=== PATIENT | male | born 2000 | race Caucasian/White ===

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

== ENCOUNTER 2022-11-12 15:44 | Emergency (ER) | payer OTHER ==
--- NOTE | 2022-11-12 15:52 | ED ---
General Adult HPI - General Source: RN notes reviewed <Ally Flores - Last Filed: 11/12/22 15:52> <Darius Napier - Last Filed: 11/13/22 00:10> - General Stated complaint: nail in L finger Time Seen by Provider: 11/12/22 15:51 - History of Present Illness Initial comments: 22-year-old male with no significant past medical history presents to the emergency department with a chief complaint of penetrating wound. Patient reports his with a nail gun when he shot a nail through his left second digit. (Ally Flores) Patient is a 22-year-old male presenting with chief complaint of nail injury to the left pointer finger. This occurred at work today. Nail entered and exited in the finger. Patient moves a nail on his own and at this time there is no active bleeding. He received his last tetanus shot in 2019. He has some swelling. Full range of motion and sensation are intact. (Darius Napier) - Related Data Previous Rx's Medication Instructions Recorded Penicillin V Potassium [Pen Vee K] 500 mg PO BID 10 Days #20 tablet 08/27/19 methylPREDNISolone [Medrol Dose 4 mg PO DIRECTED #1 pack 08/27/19 Pack] Cephalexin [Keflex] 500 mg PO Q6HR 7 Days #28 cap 11/12/22 Allergies Allergy/AdvReac Type Severity Reaction Status Date / Time No Known Allergies Allergy Verified 11/12/22 16:37 Review of Systems ROS Other: All systems not noted in ROS Statement are negative. <Ally Flores - Last Filed: 11/12/22 15:52> ROS Other: All systems not noted in ROS Statement are negative. <Darius Napier - Last Filed: 11/13/22 00:10> ROS Statement: Those systems with pertinent positive or pertinent negative responses have been documented in the HPI. Past Medical History Past Medical History: No Reported History History of Any Multi-Drug Resistant Organisms: MRSA Past Surgical History: Orthopedic Surgery Past Psychological History: No Psychological Hx Reported Past Alcohol Use History: None Reported Past Drug Use History: None Reported <Ally Flores - Last Filed: 11/12/22 15:52> General Exam <Ally Flores - Last Filed: 11/12/22 15:52> Limitations: no limitations General appearance: alert, in no apparent distress Head exam: Present: atraumatic, normocephalic, normal inspection Eye exam: Present: normal appearance, EOMI. Absent: scleral icterus, periorbital swelling Neck exam: Present: normal inspection, full ROM Left Hand Wrist exam: Present: tenderness, swelling, abrasion (2 puncture wounds are noted where the nail entered and exited on the left pointer finger) Neurological exam: Present: alert, oriented X3, CN II-XII intact Psychiatric exam: Present: normal affect, normal mood Skin exam: Present: warm, dry, intact, normal color. Absent: rash <Darius Napier - Last Filed: 11/13/22 00:10> - General Exam Comments Initial Comments: Visual Physical Exam Vital signs reviewed General: Well-appearing, nontoxic, no acute distress. Head: Normocephalic, atraumatic Eyes: PERRLA, EOMI ENT: Airway patent Chest: Nonlabored breathing Skin: No visual rash, normal skin tone Neuro: Alert and oriented 3 Musculoskeletal: No gross abnormalities (Ally Flores) Course Vital Signs 11/12/22 11/12/22 16:31 19:31 Temperature 98.6 F 98.1 F Pulse Rate 83 78 Respiratory 18 16 Rate Blood Pressure 151/95 146/91 O2 Sat by Pulse 98 98 Oximetry Medical Decision Making <Darius Napier - Last Filed: 11/13/22 00:10> - Medical Decision Making Was pt. sent in by a medical professional or institution (, [facility], MANIPULATOR OPERATOR, urgent care, hospital, or shelter...) When possible be specific @ -No Did you speak to anyone other than the patient for history (EMS, parent, family, police, friend...)? What history was obtained from this source @ -No Did you review nursing and triage notes (agree or disagree)? Why? @ -I reviewed and agree with nursing and triage notes Were old charts reviewed (outside hosp., previous admission, EMS record, old EKG, old radiological studies, urgent care reports/EKG's, shelter records)? Report findings @ -No old charts were reviewed Differential Diagnosis (chest pain, altered mental status, abdominal pain women, abdominal pain men, vaginal bleeding, weakness, fever, dyspnea, syncope, headache, dizziness, GI bleed, back pain, seizure, CVA, palpatations, mental health, musculoskeletal)? @ -Differential Musculoskeletal Muscular strain, contusion, ligament sprain, fracture, arthritis, septic arthritis, bursitis, cellulitis, muscle spasm, nerve compression, DVT, arterial occlusion, herpes zoster, electrolyte abnormality, tumor.... This is not meant to be in all inclusive list EKG interpreted by me (3pts min.). @ -As above X-rays interpreted by me (1pt min.). @ -None done CT interpreted by me (1pt min.). @ -None done U/S interpreted by me (1pt. min.). @ -None done What testing was considered but not performed or refused? (CT, X-rays, U/S, labs)? Why? @ -None What meds were considered but not given or refused? Why? @ -None Did you discuss the management of the patient with other professionals (professionals i.e. , PA, MANIPULATOR OPERATOR, lab, RT, psych nurse, hospice social worker, overhauler helper, teacher, biosecurity officer, case management director)? Give summary @ -No Was smoking cessation discussed for >3mins.? @ -No Was critical care preformed (if so, how long)? @ -No Were there social determinants of health that impacted care today? How? (Homelessness, low income, unemployed, alcoholism, drug addiction, transportation, low edu. Level, literacy, decrease access to med. care, usp, rehab)? @ -No Was there de-escalation of care discussed even if they declined (Discuss DNR or withdrawal of care, Hospice)? DNR status @ -No What co-morbidities impacted this encounter? (DM, HTN, Smoking, COPD, CAD, Cancer, CVA, ARF, Chemo, Hep., AIDS, mental health diagnosis, sleep apnea, morbid obesity)? @ -None Was patient admitted / discharged? Hospital course, mention meds given and route, prescriptions, significant lab abnormalities, going to OR and other pertinent info. @ -Patient is a 22-year-old male presenting with chief complaint of nail puncture through the left index finger. Nail is removed prior to arrival, no active bleeding. Last tetanus was in 2019. X-ray shows no fracture or foreign body. Patient is started on Keflex. Educated on wound care. Follow-up with PCP. Report back to ER with any new or worsening symptoms. Discussed return parameters and answered all questions. Patient conveyed verbal understanding and agreed to the plan. I discussed this case in detail with my attending Dr. Truong Undiagnosed new problem with uncertain prognosis? @ -No Drug Therapy requiring intensive monitoring for toxicity (Heparin, Nitro, Insulin, Cardizem)? @ -No Were any procedures done? @ -No Diagnosis/symptom? @ -Puncture wound by metallic nail Acute, or Chronic, or Acute on Chronic? @ -Acute Uncomplicated (without systemic symptoms) or Complicated (systemic symptoms)? @ -Uncomplicated Side effects of treatment? @ -No Exacerbation, Progression, or Severe Exacerbation? @ -No Poses a threat to life or bodily function? How? (Chest pain, [place], [place], pneumonia, PE, COPD, DKA, ARF, appy, cholecystitis, CVA, Diverticulitis, Homicidal, Suicidal, threat to staff... and all critical care pts) @ -No (Darius Napier) Disposition <Ally Flores - Last Filed: 11/12/22 15:52> Is patient prescribed a controlled substance at d/c from ED?: No Time of Disposition: 18:48 <Darius Napier - Last Filed: 11/13/22 00:10> Clinical Impression: Puncture wound of skin from metal nail Disposition: HOME SELF-CARE Condition: Good Instructions (If sedation given, give patient instructions): Puncture Wound (ED) Additional Instructions: Follow-up with PCP. Report back to ER with any new or worsening symptoms. Take medication as prescribed. Take Motrin and Tylenol needed for pain control. Keep the wound clean, dry, and covered. Monitor for signs of infection, including but not limited to redness, swelling, warmth, tenderness, discharge, fever, chills. Prescriptions: Cephalexin [Keflex] 500 mg PO Q6HR 7 Days #28 cap Referrals: Rukhsana Mon DO [Primary Care Provider] - 1-2 days
--- NOTE | 2022-11-12 16:31 | XR ---
EXAMINATION TYPE: XR hand complete LT DATE OF EXAM: 11/12/2022 CLINICAL HISTORY: Injury with nail passing through second finger TECHNIQUE: Frontal, lateral and oblique images of the left hand are obtained. COMPARISON: None. FINDINGS: There is no acute fracture/dislocation evident in the left hand. The joint spaces in the l eft hand appear within normal limits. No suspicious bony destruction with particular attention to the second finger left hand. The overlying soft tissue appears unremarkable. No suspicious retained meta llic foreign body identified. IMPRESSION: As above.
[2022-11-12 19:39] VITALS: BP 146/91; PULSE 78; RESP 16; TEMP 98.1
== END 2022-11-12 19:31 | disposition home or self-care (01) ==
LOC: EC 15:44
DX: S61.231A Puncture wound without foreign body of left index finger without damage to nail, initial encounter (principal); W45.0XXA Nail entering through skin, initial encounter; Y99.0 Civilian activity done for income or pay
CPT/HCPCS: 99283

== ENCOUNTER → 2023-02-22 | Outpatient (CLI) | payer OTHER ==
--- NOTE | 2023-02-22 15:17 | XR ---
EXAMINATION TYPE: XR foot complete RT DATE OF EXAM: 02/22/2023 COMPARISON: NONE HISTORY: Pain TECHNIQUE: Three views are submitted. FINDINGS: The osseous structures are intact. There is no acute fracture or dislocation. There is mild-to-mod erate first MTP joint arthropathy. Tiny calcaneal spur.. IMPRESSION: 1. No acute fracture or dislocation. If symptoms persist, follow-up exam in 7 to 10 days could be ob tained.
== END | disposition home or self-care (01) ==
LOC: RADXRMAIN 14:51
PROVIDERS: ATTEND Emergency Medicine
DX: S93.601D Unspecified sprain of right foot, subsequent encounter (principal)

== ENCOUNTER → 2023-02-25 | Outpatient (CLI) | payer OTHER ==
--- NOTE | 2023-02-25 18:17 | XR ---
PROCEDURE: XR ankle complete RT - 3V DATE AND TIME: 02/25/2023 5:37 PM CLINICAL INDICATION: PH; S93.401D,S93.601D TECHNIQUE: Department protocol COMPARISON: None FINDINGS: There is no fracture or malalignment. The mortise is intact. Soft tissue swelling is noted. IMPRESSION: Soft tissue swelling.
--- NOTE | 2023-02-25 18:18 | XR ---
PROCEDURE: XR foot complete RT - 3V DATE AND TIME: 02/25/2023 5:37 PM CLINICAL INDICATION: PH[facility]; S93.401D,S93.601D TECHNIQUE: Department protocol COMPARISON: 02/22/2023 FINDINGS: There is no fracture or malalignment. The soft tissues are unremarkable. IMPRESSION: NO ACUTE PROCESS.
== END | disposition home or self-care (01) ==
LOC: RADXRMAIN 16:58
PROVIDERS: ATTEND Emergency Medicine
DX: S93.401D Sprain of unspecified ligament of right ankle, subsequent encounter (principal); S93.601D Unspecified sprain of right foot, subsequent encounter; M79.89 Other specified soft tissue disorders

== ENCOUNTER 2023-04-27 19:49 | Emergency (ER) | payer OTHER, BC ==
--- NOTE | 2023-04-27 20:13 | ED ---
ENT HPI - General Stated complaint: Sinus Congestion Time Seen by Provider: 04/27/23 20:12 Source: patient Mode of arrival: ambulatory Limitations: no limitations - History of Present Illness Initial comments: 22-year-old male presenting with chief complaint of nasal congestion ongoing since yesterday. Patient admits to mild sore throat. He states that he has an occasional cough. Admits to sinus pressure. No fevers or chills. No nausea or vomiting. No chest pain or difficulty breathing. No abdominal pain. No ear pain. No difficulty swallowing. - Related Data Previous Rx's Medication Instructions Recorded Penicillin V Potassium [Pen Vee K] 500 mg PO BID 10 Days #20 tablet 08/27/19 methylPREDNISolone [Medrol Dose 4 mg PO DIRECTED #1 pack 08/27/19 Pack] Cephalexin [Keflex] 500 mg PO Q6HR 7 Days #28 cap 11/12/22 Ibuprofen 800 mg PO Q8H #24 tab 02/16/23 Fluticasone Nasal [place] [Flonase 2 spray EA NOSTRIL DAILY #16 gm 04/27/23 Nasal [place]] Allergies Allergy/AdvReac Type Severity Reaction Status Date / Time No Known Allergies Allergy Verified 04/27/23 20:12 Review of Systems ROS Statement: Those systems with pertinent positive or pertinent negative responses have been documented in the HPI. ROS Other: All systems not noted in ROS Statement are negative. Past Medical History Past Medical History: No Reported History History of Any Multi-Drug Resistant Organisms: MRSA Past Surgical History: Orthopedic Surgery Past Psychological History: No Psychological Hx Reported Past Alcohol Use History: None Reported Past Drug Use History: None Reported General Exam - General Exam Comments Initial Comments: Visual Physical Exam Vital signs reviewed General: Well-appearing, nontoxic, no acute distress. Head: Normocephalic, atraumatic Eyes: PERRLA, EOMI ENT: Airway patent Chest: Nonlabored breathing Skin: No visual rash, normal skin tone Neuro: Alert and oriented 3 Musculoskeletal: No gross abnormalities Limitations: no limitations General appearance: alert, in no apparent distress Head exam: Present: atraumatic, normocephalic, normal inspection Eye exam: Present: normal appearance, EOMI ENT exam: Present: normal exam, normal oropharynx, mucous membranes moist, TM's normal bilaterally Neck exam: Present: normal inspection, full ROM. Absent: lymphadenopathy Respiratory exam: Present: normal lung sounds bilaterally. Absent: respiratory distress, wheezes, rales, rhonchi, stridor Cardiovascular Exam: Present: regular rate, normal rhythm, normal heart sounds. Absent: systolic murmur, diastolic murmur, rubs, gallop, clicks Neurological exam: Present: alert, oriented X3 Psychiatric exam: Present: normal affect, normal mood Skin exam: Present: warm, dry, intact, normal color. Absent: rash Course Vital Signs 04/27/23 04/28/23 20:11 00:03 Temperature 98.6 F 98.4 F Pulse Rate 97 79 Respiratory 18 18 Rate Blood Pressure 149/84 132/84 O2 Sat by Pulse 98 98 Oximetry Medical Decision Making - Medical Decision Making Was pt. sent in by a medical professional or institution (, PA, ROTARY SURFACE GRINDER, urgent care, hospital, or intermediate...) When possible be specific @ -No Did you speak to anyone other than the patient for history (EMS, parent, family, police, friend...)? What history was obtained from this source @ -No Did you review nursing and triage notes (agree or disagree)? Why? @ -I reviewed and agree with nursing and triage notes Were old charts reviewed (outside hosp., previous admission, EMS record, old EKG, old radiological studies, urgent care reports/EKG's, intermediate records)? Report findings @ -No old charts were reviewed Differential Diagnosis (chest pain, altered mental status, abdominal pain women, abdominal pain men, vaginal bleeding, weakness, fever, dyspnea, syncope, headache, dizziness, GI bleed, back pain, seizure, CVA, palpatations, mental h ealth, musculoskeletal)? @ -Differential includes sinusitis, Covid, influenza, RSV, group A strep, other viral URI, this is not an all inclusive list EKG interpreted by me (3pts min.). @ -As above X-rays interpreted by me (1pt min.). @ -None done CT interpreted by me (1pt min.). @ -None done U/S interpreted by me (1pt. min.). @ -None done What testing was considered but not performed or refused? (CT, X-rays, U/S, labs)? Why? @ -None What meds were considered but not given or refused? Why? @ -None Did you discuss the management of the patient with other professionals (professionals i.e. , PA, ROTARY SURFACE GRINDER, lab, RT, psych nurse, oncology social worker, scoring machine operator, teacher, tactical response group officer, oil field caser)? Give summary @ -No Was smoking cessation discussed for >3mins.? @ -No Was critical care preformed (if so, how long)? @ -No Were there social determinants of health that impacted care today? How? (Homelessness, low income, unemployed, alcoholism, drug addiction, transportation, low edu. Level, literacy, decrease access to med. care, snf, rehab)? @ -No Was there de-escalation of care discussed even if they declined (Discuss DNR or withdrawal of care, Hospice)? DNR status @ -No What co-morbidities impacted this encounter? (DM, HTN, Smoking, COPD, CAD, Cancer, CVA, ARF, Chemo, Hep., AIDS, mental health diagnosis, sleep apnea, morbid obesity)? @ -None Was patient admitted / discharged? Hospital course, mention meds given and route, prescriptions, significant lab abnormalities, going to OR and other pertinent info. @ -22-year-old male presenting with chief complaint of nasal congestion that started yesterday. Intermittent sore throat. Physical exam is conducted. Patient is negative for Covid, influenza, RSV, group A strep. Educated on supportive management. Sent prescription for Flonase.Follow-up with PCP. Report back to ER with any new or worsening symptoms. Discussed return parameters and answered all questions. Patient conveyed verbal understanding and agreed to the plan. I discussed this case in detail with my attending Dr. Chisholm Undiagnosed new problem with uncertain prognosis? @ -No Drug Therapy requiring intensive monitoring for toxicity (Heparin, Nitro, Insulin, Cardizem)? @ -No Were any procedures done? @ -No Diagnosis/symptom? @ -Sinusitis Acute, or Chronic, or Acute on Chronic? @ -Acute Uncomplicated (without systemic symptoms) or Complicated (systemic symptoms)? @ -uncomplicated Side effects of treatment? @ -No Exacerbation, Progression, or Severe Exacerbation? @ -No Poses a threat to life or bodily function? How? (Chest pain, [place], [place], pneumonia, PE, COPD, DKA, ARF, appy, cholecystitis, CVA, Diverticulitis, Homicidal, Suicidal, threat to staff... and all critical care pts) @ -No - Lab Data Lab Results 04/27/23 04/27/23 Range/Units 20:13 22:49 Influenza Type A (PCR) Not Detected (Not Detectd) Influenza Type B (PCR) Not Detected (Not Detectd) RSV (PCR) Not Detected (Not Detectd) SARS-CoV-2 (PCR) Not Detected (Not Detectd) Group A Strep (PCR) NOT DETECTED (Not Detectd) Disposition Clinical Impression: Sinusitis Disposition: HOME SELF-CARE Condition: Good Instructions (If sedation given, give patient instructions): Sinusitis (ED) Additional Instructions: Follow-up with PCP. Report back to ER with any new or worsening symptoms. Prescriptions: Fluticasone Nasal [place] [Flonase Nasal [place]] 2 spray EA NOSTRIL DAILY #16 gm Is patient prescribed a controlled substance at d/c from ED?: No Referrals: Rukhsana Mon DO [Primary Care Provider] - 1-2 days Time of Disposition: 23:37
[2023-04-27 20:25] VITALS: RESP 18
[2023-04-28 00:24] VITALS: BP 132/84; PULSE 79; TEMP 98.4
== END 2023-04-28 00:04 | disposition home or self-care (01) ==
LOC: EC 19:49
DX: J01.90 Acute sinusitis, unspecified (principal); Z20.822 Contact with and (suspected) exposure to COVID-19
CPT/HCPCS: 87636; 87651; 99283

== ENCOUNTER 2023-08-21 05:08 | Emergency (ER) | payer OTHER, BC ==
[2023-08-21 05:22] VITALS: BP 146/88; PULSE 95; RESP 20; TEMP 98.2
--- NOTE | 2023-08-21 06:42 | ED ---
General Adult HPI - General Chief complaint: Recheck/Abnormal Lab/Rx Stated complaint: flu test Time Seen by Provider: 08/21/23 05:28 Source: patient, RN notes reviewed, old records reviewed Mode of arrival: ambulatory Limitations: no limitations - History of Present Illness Initial comments: Patient is a 23-year-old male who presents emergency department for COVID and flu testing. He has no symptoms. Is trying to go upstairs to labor and delivery and they requested that he obtain testing. Patient has no significant medical problems. - Related Data Previous Rx's Medication Instructions Recorded Penicillin V Potassium [Pen Vee K] 500 mg PO BID 10 Days #20 tablet 08/27/19 methylPREDNISolone [Medrol Dose 4 mg PO DIRECTED #1 pack 08/27/19 Pack] Cephalexin [Keflex] 500 mg PO Q6HR 7 Days #28 cap 11/12/22 Ibuprofen 800 mg PO Q8H #24 tab 02/16/23 Fluticasone Nasal [place] [Flonase 2 spray EA NOSTRIL DAILY #16 gm 04/27/23 Nasal [place]] Allergies Allergy/AdvReac Type Severity Reaction Status Date / Time No Known Allergies Allergy Verified 04/27/23 20:12 Review of Systems ROS Statement: Those systems with pertinent positive or pertinent negative responses have been documented in the HPI. Review of Systems: CONST: Denies fever EYES: Denies blurry vision ENT: Denies nasal congestion C/V: Denies Chest pain RESP: Denies shortness of breath GI: Denies abdominal pain : Denies dysuria SKIN: Denies rash. MSK: Denies joint pain. NEURO: Denies headache ROS Other: All systems not noted in ROS Statement are negative. Past Medical History Past Medical History: No Reported History History of Any Multi-Drug Resistant Organisms: MRSA Past Surgical History: Orthopedic Surgery Past Psychological History: No Psychological Hx Reported Past Alcohol Use History: None Reported Past Drug Use History: None Reported General Exam - General Exam Comments Initial Comments: General: Appears in no acute distress. HEAD: Normal with no signs of head trauma. EYES: EOMI. ENT: Hearing grossly intact. RESPIRATORY: No respiratory distress. C/V: Regular rate and rhythm. ABD: Abdomen is nondistended. EXT: No obvious deformity. SKIN: No rashes or lesions observed on exposed skin. NEURO: Alert and oriented. Limitations: no limitations Course Vital Signs 08/21/23 05:09 Temperature 98.2 F Pulse Rate 95 Respiratory 20 Rate Blood Pressure 146/88 O2 Sat by Pulse 97 Oximetry Medical Decision Making - Medical Decision Making Was pt. sent in by a medical professional or institution ([facility] Lockwood, INDUSTRIAL HEALTH AND SAFETY PROFESSOR, urgent care, hospital, or retirement...) When possible be specific @ -No Did you speak to anyone other than the patient for history (EMS, parent, family, police, friend...)? What history was obtained from this source @ -No Did you review nursing and triage notes (agree or disagree)? Why? @ -I reviewed and agree with nursing and triage notes Were old charts reviewed (outside hosp., previous admission, EMS record, old EKG, old radiological studies, urgent care reports/EKG's, retirement records)? Report findings @ -No old charts were reviewed Differential Diagnosis (chest pain, altered mental status, abdominal pain women, abdominal pain men, vaginal bleeding, weakness, fever, dyspnea, syncope, headache, dizziness, GI bleed, back pain, seizure, CVA, palpatations, mental health, musculoskeletal)? @ -COVID, flu, RSV. This list is not all inclusive. EKG interpreted by me (3pts min.). @ -None done X-rays interpreted by me (1pt min.). @ -None done CT interpreted by me (1pt min.). @ -None done U/S interpreted by me (1pt. min.). @ -None done What testing was considered but not performed or refused? (CT, X-rays, U/S, labs)? Why? @ -None What meds were considered but not given or refused? Why? @ -None Did you discuss the management of the patient with other professionals (professionals i.e. ALMA Lockwood, INDUSTRIAL HEALTH AND SAFETY PROFESSOR, lab, RT, psych nurse, social media campaign manager, primary care nurse, teacher, corporate trust officer, casework manager)? Give summary @ -No Was smoking cessation discussed for >3mins.? @ -No Was critical care preformed (if so, how long)? @ -No Were there social determinants of health that impacted care today? How? (Homelessness, low income, unemployed, alcoholism, drug addiction, transportation, low edu. Level, literacy, decrease access to med. care, custodial, rehab)? @ -No Was there de-escalation of care discussed even if they declined (Discuss DNR or withdrawal of care, Hospice)? DNR status @ -No What co-morbidities impacted this encounter? (DM, HTN, Smoking, COPD, CAD, Cancer, CVA, ARF, Chemo, Hep., AIDS, mental health diagnosis, sleep apnea, morbid obesity)? @ -None Was patient admitted / discharged? Hospital course, mention meds given and route, prescriptions, significant lab abnormalities, going to OR and other pertinent info. @ -Patient presents for COVID and flu testing. He has no symptoms. Vital s igns within acceptable limits. COVID and flu and RSV testing are negative. He will be discharged home at this time. I instructed the patient to follow up with their PCP in the next 1-3 days. I explained that the patient should return to the emergency department if they experience any worsening symptoms. Strict return precautions were discussed with the patient. The patient expressed understanding of these instructions. I answered all questions that the patient had. The patient was discharged home in good condition with their prescriptions and follow up information. Undiagnosed new problem with uncertain prognosis? @ -No Drug Therapy requiring intensive monitoring for toxicity (Heparin, Nitro, Insulin, Cardizem)? @ -No Were any procedures done? @ -No Diagnosis/symptom? @ -Encounter for COVID screening Acute, or Chronic, or Acute on Chronic? @ -Acute Uncomplicated (without systemic symptoms) or Complicated (systemic symptoms)? @ -Uncomplicated Side effects of treatment? @ -No Exacerbation, Progression, or Severe Exacerbation? @ -No Poses a threat to life or bodily function? How? (Chest pain, [place], [place], pneumonia, PE, COPD, DKA, ARF, appy, cholecystitis, CVA, Diverticulitis, Homicidal, Suicidal, threat to staff... and all critical care pts) @ -No - Lab Data Lab Results 08/21/23 Range/Units 05:13 Influenza Type A (PCR) Not Detected (Not Detectd) Influenza Type B (PCR) Not Detected (Not Detectd) RSV (PCR) Not Detected (Not Detectd) SARS-CoV-2 (PCR) Not Detected (Not Detectd) Disposition Clinical Impression: Encounter for screening for COVID-19 Disposition: HOME SELF-CARE Condition: Good Additional Instructions: Covid testing is negative. Flu testing is negative. RSV testing is negative. Is patient prescribed a controlled substance at d/c from ED?: No Referrals: Rukhsana Mon DO [Primary Care Provider] - 1-2 days Time of Disposition: 06:40
== END 2023-08-21 06:51 | disposition home or self-care (01) ==
LOC: EC 05:08
DX: Z11.52 Encounter for screening for COVID-19 (principal); Z20.822 Contact with and (suspected) exposure to COVID-19
CPT/HCPCS: 87636; 99282

== ENCOUNTER 2023-09-17 00:16 | Emergency (ER) | payer OTHER ==
[2023-09-17 00:30] VITALS: BP 129/81; PULSE 78; RESP 20; TEMP 98.1
--- NOTE | 2023-09-17 00:57 | XR ---
EXAMINATION TYPE: XR cervical spine limited DATE OF EXAM: 09/17/2023 TECHNIQUE: Frontal, lateral, in open mouth view of the cervical spine are obtained. HISTORY: r/o fx neck pain for 2 hours. COMPARISON: None FINDINGS: The cervical spine is visualized in its entirety from C1 thru the bottom of C7 level, it i s satisfactory in alignment without evidence of acute fracture or dislocation. Is suboptimal evaluati on of C7-T1 disc space otherwise vertebral body heights and disc space heights are maintained. The pr e-vertebral soft tissue appears within normal limits. The C1-C2 articulation is within normal limits on the open mouth view. The overlying soft tissue is unremarkable. IMPRESSION: As above.
[2023-09-17] MEDS: KETOROLAC 15 MG/ML 1 ML VIAL IM STA (01:34)
--- NOTE | 2023-09-17 01:41 | XR ---
EXAMINATION TYPE: XR lumbar spine 2 or 3V DATE OF EXAM: 09/17/2023 CLINICAL HISTORY: Back pain for 2 hours after fall. TECHNIQUE: Frontal and lateral images of the lumbar spine are obtained. COMPARISON: None. FINDINGS: Evaluation slightly suboptimal due to patient's large body habitus. There are 5 lumbar typ e vertebral bodies identified. The lumbar spine shows satisfactory alignment without evidence of acu te displaced fracture. Vertebral body heights and disk space heights are within normal limits. The Th e overlying soft tissue appears unremarkable. IMPRESSION: Suboptimal study but no acute displaced fracture is seen in the lumbar spine.
--- NOTE | 2023-09-17 02:29 | ED ---
Fall HPI - General Chief Complaint: Fall Stated Complaint: NECK AND BACK PAIN Time Seen by Provider: 09/17/23 00:33 Source: patient Mode of arrival: ambulatory - History of Present Illness Initial Comments: 23-year-old male presents to the ED with a chief complaint of back pain. Patient states earlier today he tripped over his dog causing him to fall forward onto his couch. No head injury at this time. States that during the fall he bent his back and hyperflexed it. Now reports pain of his neck and his lower back. No other injuries at this time. Denies saddle anesthesia or incontinence. No other complaints. - Related Data Previous Rx's Medication Instructions Recorded Penicillin V Potassium [Pen Vee K] 500 mg PO BID 10 Days #20 tablet 08/27/19 methylPREDNISolone [Medrol Dose 4 mg PO DIRECTED #1 pack 08/27/19 Pack] Cephalexin [Keflex] 500 mg PO Q6HR 7 Days #28 cap 11/12/22 Ibuprofen 800 mg PO Q8H #24 tab 02/16/23 Fluticasone Nasal [place] [Flonase 2 spray EA NOSTRIL DAILY #16 gm 04/27/23 Nasal [place]] Allergies Allergy/AdvReac Type Severity Reaction Status Date / Time No Known Allergies Allergy Verified 09/17/23 00:28 Review of Systems ROS Statement: Those systems with pertinent positive or pertinent negative responses have been documented in the HPI. ROS Other: All systems not noted in ROS Statement are negative. Past Medical History Past Medical History: No Reported History History of Any Multi-Drug Resistant Organisms: MRSA Past Surgical History: Orthopedic Surgery Past Psychological History: No Psychological Hx Reported Smoking Status: Vaper Past Alcohol Use History: Occasional Past Drug Use History: None Reported General Exam Limitations: no limitations General appearance: alert, in no apparent distress Head exam: Present: atraumatic, normocephalic, other (No bergeron signs or raccoon's eyes) Eye exam: Present: normal appearance, PERRL, EOMI Neck exam: Present: normal inspection Respiratory exam: Present: normal lung sounds bilaterally Cardiovascular Exam: Present: regular rate, normal rhythm GI/Abdominal exam: Present: soft Extremities exam: Present: normal inspection, other (Strength and sensation equal intact bilateral lower extremities. DP/PT pulses palpable.) Back exam: Present: normal inspection, other (No midline spinal tenderness to palpation.) Neurological exam: Present: alert, oriented X3 Skin exam: Present: warm, dry Course Vital Signs 09/17/23 00:24 Temperature 98.1 F Pulse Rate 78 Respiratory 20 Rate Blood Pressure 129/81 O2 Sat by Pulse 98 Oximetry Medical Decision Making - Medical Decision Making Was pt. sent in by a medical professional or institution ([facility] Lockwood, REFERENCE AND INSTRUCTION LIBRARIAN, urgent care, hospital, or [facility]...) When possible be specific @ -No Did you speak to anyone other than the patient for history (EMS, parent, family, police, friend...)? What history was obtained from this source @ -No Did you review nursing and triage notes (agree or disagree)? Why? @ -I reviewed and agree with nursing and triage notes Were old charts reviewed (outside hosp., previous admission, EMS record, old EKG, old radiological studies, urgent care reports/EKG's, [facility] records)? Report findings @ -No old charts were reviewed Differential Diagnosis (chest pain, altered mental status, abdominal pain women, abdominal pain men, vaginal bleeding, weakness, fever, dyspnea, syncope, headache, dizziness, GI bleed, back pain, seizure, CVA, palpatations, mental health, musculoskeletal)? @ -Differential Back Pain: Strain, zoster, cauda equina syndrome, epidural abscess, vertebral osteomyelitis, discitis, fracture, subluxation, disc herniation, DJD, spinal stenosis, dissection, AAA, pancreatitis, peptic ulcer disease, pyelonephritis, kidney stone, this is not meant to be an all-inclusive list. EKG interpreted by me (3pts min.). @ -None X-rays interpreted by me (1pt min.). @ -X-ray of the cervical spine and lumbar spine interpreted by me which revealed no evidence of acute finding. CT interpreted by me (1pt min.). @ -None done U/S interpreted by me (1pt. min.). @ -None done What testing was considered but not performed or refused? (CT, X-rays, U/S, labs)? Why? @ -None What meds were considered but not given or refused? Why? @ -None Did you discuss the management of the patient with other professionals (professionals i.e. AL[facility] Lockwood, REFERENCE AND INSTRUCTION LIBRARIAN, lab, RT, psych nurse, social work administrator, sprinkler worker, teacher, liaison officer, case finishing machine adjuster)? Give summary @ -No Was smoking cessation discussed for >3mins.? @ -No Was critical care preformed (if so, how long)? @ -No Were there social determinants of health that impacted care today? How? (Homelessness, low income, unemployed, alcoholism, drug addiction, transportation, low edu. Level, literacy, decrease access to med. care, [facility], rehab)? @ -No Was there de-escalation of care discussed even if they declined (Discuss DNR or withdrawal of care, Hospice)? DNR status @ -No What co-morbidities impacted this encounter? (DM, HTN, Smoking, COPD, CAD, Cancer, CVA, ARF, Chemo, Hep., AIDS, mental health diagnosis, sleep apnea, morbid obesity)? @ -None Was patient admitted / discharged? Hospital course, mention meds given and route, prescriptions, significant lab abnormalities, going to OR and other pertinent info. @ -Discharge 23-year-old male presented to the ED with complaints of neck pain and back pain status post mechanical fall after he tripped on his dog landing on the couch. Exam showed no midline spinal tenderness to palpation. Full strength and sensation bilateral lower extremities. Patient denies saddle anesthesia or incontinence. Imaging revealed no evidence of acute fracture. Patient provided Toradol here with significant improvement of pain. Discharged home in stable condition with instructions to follow-up with his PCP. Discussed return precautions with patient who verbalized agreement. Undiagnosed new problem with uncertain prognosis? @ -No Drug Therapy requiring intensive monitoring for toxicity (Heparin, Nitro, Insulin, Cardizem)? @ -No Were any procedures done? @ -No Diagnosis/symptom? @ -Status post mechanical fall, back pain, neck pain Acute, or Chronic, or Acute on Chronic? @ -Acute Uncomplicated (without systemic symptoms) or Complicated (systemic symptoms)? @ -Uncomplicated Side effects of treatment? @ -No Exacerbation, Progression, or Severe Exacerbation? @ -No Poses a threat to life or bodily function? How? (Chest pain, [place], [place], pneumonia, PE, COPD, DKA, ARF, appy, cholecystitis, CVA, Diverticulitis, Homicidal, Suicidal, threat to staff... and all critical care pts) @ -No Disposition Clinical Impression: Fall, Back pain, Neck pain Disposition: HOME SELF-CARE Condition: Good Instructions (If sedation given, give patient instructions): Fall Prevention (ED), Acute Low Back Pain (ED), Cervical Strain (ED) Additional Instructions: Please return to the Emergency Department if symptoms worsen or any other concerns. Please follow-up with your primary care provider. Take [id number] pain medications as needed for pain. Is patient prescribed a controlled substance at d/c from ED?: No Referrals: Rukhsana Mon DO [Primary Care Provider] - 1-2 days Decision Time: 02:34
== END 2023-09-17 02:42 | disposition home or self-care (01) ==
LOC: EC 00:16
DX: M54.50 Low back pain, unspecified (principal); M54.2 Cervicalgia; F17.290 Nicotine dependence, other tobacco product, uncomplicated; W19.XXXA Unspecified fall, initial encounter
CPT/HCPCS: 72040; 72100; 96372; 99283; J1885

== ENCOUNTER → 2023-11-17 | Outpatient (CLI) | payer OTHER | END | disposition home or self-care (01) | LOC: LABWHC1 09:29 | PROVIDERS: ATTEND Nurse Practitioner Family | DX: Z77.011 Contact with and (suspected) exposure to lead (principal) | CPT/HCPCS: 36415; 83655 ==

== ENCOUNTER 2023-12-29 16:16 | Emergency (ER) | payer OTHER, BC ==
[2023-12-29 16:24] VITALS: RESP 18
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
[2023-12-29] MEDS: ACETAMINOPHEN TAB 500 MG TAB PO STA (17:05)
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
[2023-12-29 19:33] VITALS: BP 130/80; PULSE 71; TEMP 98.2
== END 2023-12-29 19:33 | disposition home or self-care (01) ==
LOC: EC 16:16
DX: S16.1XXA Strain of muscle, fascia and tendon at neck level, initial encounter (principal); F17.290 Nicotine dependence, other tobacco product, uncomplicated; V43.52XA Car driver injured in collision with other type car in traffic accident, initial encounter; Y92.410 Unspecified street and highway as the place of occurrence of the external cause
CPT/HCPCS: 70450; 72125; 99284